=== PATIENT | female | born 1990 | race Two or more races ===

== ENCOUNTER 2023-06-07 00:03 | Emergency (ER) | payer MEDICAID ==
[~2023-06-07] VITALS: Ht 157.5 cm; Wt 84.4 kg
[2023-06-07 00:47] LABS: Basophils # (auto) 0 10 ^3/uL (0-0.2); Basophils % (auto) 0.2 % (0.0-2.0); Eosinophils # (auto) 0.1 10 ^3/uL (0-0.8); Lymphocytes # (auto) 2.4 10 ^3/uL (0.4-5.4); Monocytes # (auto) 0.6 10 ^3/uL (0-1.3)
[2023-06-07 00:49] LABS: Eosinophils % (auto) 0.8 % (0.0-7.0); Hematocrit 38.4 % (36.0-46.0); Hemoglobin 12.7 g/dL (12.2-16.2); Lymphocytes % (auto) 27.6 % (10.0-50.0); Mean Corpuscular Hemoglobin 28.7 pg (28.0-32.0); Mean Corpuscular Hgb Conc. 33.1 g/dL (32.0-36.0); Mean Corpuscular Volume 86.6 fL (80.0-100.0); Neutrophils # (auto) 5.7 10 ^3/uL (1.6-8.6); Neutrophils % (auto) 64.4 % (37.0-80.0); Red Blood Cells 4.44 10^6/uL (4.0-5.20); Red Cell Distribution Width 14.2 % (11.8-14.3); White Blood Cell 8.8 10^3/uL (4.4-10.8)
[2023-06-07 01:00] LABS: Alanine Aminotransferase 21 U/L (7-40); Albumin 4.4 g/dL (3.2-4.8); Alkaline Phosphatase 44 U/L (46-116); Anion Gap 8 (5-15); Aspartate Aminotransferase 20 U/L (13-40); Bilirubin, Total 0.2 mg/dL (0.2-1.0); Calcium 9.2 mg/dL (8.5-10.1); Carbon Dioxide 29 mmol/L (20-30); Chloride 102 mmol/L (98-107); Glucose 126 mg/dL (74-106); Sodium 139 mmol/L (136-145)
[2023-06-07 01:01] LABS: Total Protein 7.3 g/dL (5.7-8.2)
[2023-06-07 01:07] LABS: BUN/Creatinine Ratio 7.6 (10.0-20.0); Blood Urea Nitrogen < 5 mg/dL (9-23)
[2023-06-07 01:08] LABS: Potassium 2.9 mmol/L (3.5-5.1)
[2023-06-07 01:18] LABS: Magnesium 1.8 mg/dL (1.6-2.6)
[2023-06-07 01:58] LABS: Partial Thromboplastin Time 26.8 SEC (24.5-34.5); Prothrombin Time 10.7 sec (9.3-11.8)
[2023-06-07] MEDS ORDERED: POTASSIUM CHL 20MEQ/100ML 100 ML IV ONE (03:30)
[2023-06-07] MEDS ORDERED: DexAMETHasone SOD PHOS 10MG/1ML VIAL INJ IV ONE (03:30)
[2023-06-07] MEDS ORDERED: POTASSIUM EFFERVESENT TAB 25 MEQ PO ONE (03:30)
[2023-06-07] MEDS ORDERED: ONDANSETRON HCL 4 MG/2 ML VIAL IV ONE (03:30)
[2023-06-07] MEDS ORDERED: diphenhdrAMINE HCL 50 MG/1 ML VL IV ONE (03:30)
[2023-06-07] MEDS ORDERED: FAMOTIDINE (10MG/ML) 2ML VL IV ONE (03:30)
[2023-06-07 05:22] LABS: Urine Bacteria FEW /hpf (None Seen); Urine Blood Negative /uL (Negative); Urine Clarity Clear (Clear); Urine Color Yellow (Yellow); Urine Protein, UAD Negative (Negative); Urine Specific Gravity 1.016 (1.001-1.035); Urine Urobilinogen Normal (Negative); Urine WBC 1 /hpf (0 - 5); Urine pH 6.5 (5.0-8.0)
[2023-06-07] MEDS ORDERED: IVER3TAB PO (05:58)
[2023-06-07] MEDS ORDERED: [UNRECOGNIZED DRUG - CODE] EX (05:58)
[2023-06-07 06:02] VITALS: TEMP 97.7
[2023-06-07 09:05] VITALS: PULSE 95; RESP 17; O2SAT 97
[2023-06-07 12:33] VITALS: BP 126/81; PULSE 91; RESP 15; O2SAT 96
== END 2023-06-07 08:30 | disposition home or self-care (01) ==
LOC: ER 00:03
DX: L29.9 Pruritus, unspecified (principal); E87.6 Hypokalemia; Z88.8 Allergy status to other drugs, medicaments and biological substances; Z86.2 Personal history of diseases of the blood and blood-forming organs and certain disorders involving the immune mechanism
CPT/HCPCS: 36415; 71045; 80053; 81001; 83605; 83735; 83880; 84484; 85025; 85610; 85730; 87040; 93005; 96365; 96366; 96375; 99285; J1100; J1200; J2405; J3480; J3490